=== PATIENT | female | born 1990 | race Caucasian/White ===

== ENCOUNTER 2016-07-22 21:24 | Emergency (ER) | payer MEDICAID, OTHER ==
--- NOTE | 2016-07-22 21:48 | ED.PDOC ---
History of Present Illness - General Chief Complaint: ENT Problem Stated Complaint: Ruslan in R lower eyelid Time Seen by Provider: 07/22/16 21:45 Source: patient, RN notes reviewed, Vital Signs reviewed Exam Limitations: no limitations - History of Present Illness Initial Comments: Vin was hanging from car mirror. She bent over to pick something up from the floorboard and when she came up the hook caught her R lower eyelid. Timing/Duration: abrupt EENT Location: eye (R) Prearrival Treatment: no prearrival treatment Improving Factors: nothing Associated Symptoms: denies symptoms Allergies/Adverse Reactions: Allergies NO KNOWN ALLERGY Allergy (Unverified 03/20/12 21:52) Home Medications: Ambulatory Orders Naproxen Sodium [Anaprox Ds] 550 mg PO BID #30 tab 07/02/14 Penicillin V Potassium 500 mg PO QID #40 tab 07/02/14 Azithromycin [Zithromax Z-Mario] 1 ea PO DAILY #1 pack 12/28/15 Review of Systems - Review of Systems Constitutional: States: no symptoms reported EENTM: States: see HPI, eye pain, tearing. Denies: blurred vision, double vision Respiratory: States: no symptoms reported Cardiology: States: no symptoms reported Skin: States: see HPI Neurological: States: no symptoms reported All other Systems: No Change from Baseline Past Medical History (General) - Patient Medical History Hx Seizures: No Hx Stroke: No Hx Dementia: No Hx Asthma: No Hx of COPD: No Hx Cardiac Disorders: No Hx Congestive Heart Failure: No Hx Pacemaker: No Hx Hypertension: No Hx Thyroid Disease: No Hx Diabetes: No Hx Gastroesophageal Reflux: No Hx Renal Disease: No Hx Cancer: No Hx of HIV: No Hx Hepatitis C: No Hx MRSA: No - Vaccination History Hx Influenza Vaccination: No - Social History Hx Tobacco Use: Yes Hx Alcohol Use: Yes Hx Substance Use: No Hx Substance Use Treatment: No Hx Depression: Yes Hx Physical Abuse: No Hx Emotional Abuse: No Hx Suspected Abuse: No - Female History Patient : No Family Medical History - Family History Mother Family History: Unknown Living Status: Age at (years of age): 30 Cause of : MVC Physical Exam - Physical Exam General Appearance: Agitated, Anxious, Obvious distress, Well Developed, Well Groomed, Well Hydrated, Well Nourished Eye Exam: right other - Fish hook lower eyelid, after fish hook remmoved eye examined with Flurosene, several small abrasions across lower cornea., left normal Neck: full range of motion, supple Cardiovascular/Respiratory: no respiratory distress Neurologic: alert, normal mood/affect, oriented x 3 Skin Exam: normal color, warm/dry Procedures - Foreign Body Removal Foreign Body Removal: fish hook - Anethseia: tetracaine. Gentamycin drops placed by nurse Foreign Body Physician Comment:: Fish hook through inner aspect of lower eyelid. Removed without difficulty. Departure - Departure Clinical Impression: Corneal abrasion, right Qualifiers: Encounter type: initial encounter Qualified Code(s): S05.01XA - Injury of conjunctiva and corneal abrasion without foreign body, right eye, initial encounter Fish hook injury of cheek Qualifiers: Encounter type: initial encounter Qualified Code(s): S09.93XA - Unspecified injury of face, initial encounter Time of Disposition: 21:54 Disposition: Discharge to Home or Self Care Condition: Good Instructions: DI for Corneal Abrasion Diet: resume usual diet Activity: increase activity as tolerated Home Medications: Ambulatory Orders Naproxen Sodium [Anaprox Ds] 550 mg PO BID #30 tab 07/02/14 Penicillin V Potassium 500 mg PO QID #40 tab 07/02/14 Azithromycin [Zithromax Z-Mario] 1 ea PO DAILY #1 pack 12/28/15 Additional Instructions: Gentamycin Eye Drops: Apply 1 drop every 4 hours while awake X 7 days No contact in R eye X 7 days
[2016-07-22 21:57] VITALS: BP 144/87; TEMP 98.6; O2SAT 100
[2016-07-22] MEDS ORDERED: TETRACAINE HCL 0.5% 4 ML BTTL OPHTH ONE (22:00)
[2016-07-22] MEDS ORDERED: GENTAMICIN OPTH SOL 0.3% 5ML BOTTLE OPHTH ONE (22:00)
== END 2016-07-22 22:08 | disposition home or self-care (01) ==
LOC: ER 21:24
DX: S01.141A Puncture wound with foreign body of right eyelid and periocular area, initial encounter (principal); S05.01XA Injury of conjunctiva and corneal abrasion without foreign body, right eye, initial encounter; Z87.891 Personal history of nicotine dependence; X58.XXXA Exposure to other specified factors, initial encounter; Y92.89 Other specified places as the place of occurrence of the external cause

== ENCOUNTER 2017-03-20 10:22 | Emergency (ER) | payer SELFPAY ==
[2017-03-20 10:46] VITALS: BP 125/76; TEMP 97.2; O2SAT 98
--- NOTE | 2017-03-20 10:58 | ED.PDOC ---
History of Present Illness - General Chief Complaint: Eye Problems Stated Complaint: right eye swelling/pain,BEE Time Seen by Provider: 03/20/17 10:44 Source: patient Exam Limitations: no limitations - History of Present Illness Initial Comments: SHE STARTED WITH RIGHT EYE PAIN AND INJECTION YESTERDAY ASSOCIATED WITH LACRIMATION AND A RIGHT SIDED HEADACHE. SHE ALSO VOICES GALACTORRHEA. SHE HAS A HX OF A PUNCTURE WOUND TO THE RIGHT SCLERA WITH A FISHHOOK SEVERAL MONTHS AGO. THERE WAS NO GLOBE PUNCTURE. Timing/Duration: gradual, yesterday EENT Location: eye (R) Prearrival Treatment: no prearrival treatment Improving Factors: nothing Associated Symptoms: denies symptoms Allergies/Adverse Reactions: Allergies NO KNOWN ALLERGY Allergy (Verified 07/22/16 21:57) Home Medications: Ambulatory Orders NK [NK] 03/20/17 Review of Systems - Review of Systems Constitutional: States: no symptoms reported EENTM: States: eye pain, ear pain, throat pain Respiratory: States: no symptoms reported Cardiology: States: no symptoms reported Gastrointestinal/Abdominal: States: no symptoms reported Genitourinary: States: other - RIGHT SIDED GALACTORRHEA Musculoskeletal: States: no symptoms reported Skin: States: no symptoms reported Neurological: States: no symptoms reported Endocrine: States: no symptoms reported Hematologic/Lymphatic: States: no symptoms reported Past Medical History (General) - Patient Medical History Hx Seizures: No Hx Stroke: No Hx Dementia: No Hx Asthma: No Hx of COPD: No Hx Cardiac Disorders: No Hx Congestive Heart Failure: No Hx Pacemaker: No Hx Hypertension: No Hx Thyroid Disease: No Hx Diabetes: No Hx Gastroesophageal Reflux: No Hx Renal Disease: No Hx Cancer: No Hx of HIV: No Hx Hepatitis C: No Hx MRSA: No - Vaccination History Hx Tetanus, Diphtheria Vaccination: Yes - 2016 Hx Influenza Vaccination: No - Social History Hx Tobacco Use: Yes Hx Alcohol Use: Yes Hx Substance Use: No Hx Substance Use Treatment: No Hx Depression: Yes Hx Physical Abuse: No Hx Emotional Abuse: No Hx Suspected Abuse: No - Female History Patient is a Female of Child Bearing Age (10 -59 yrs old): Yes - states her periods are irregular Patient : No Family Medical History - Family History Mother Family History: Unknown Living Status: Age at (years of age): 30 Cause of : MVC Physical Exam - Physical Exam General Appearance: Alert, Anxious Eye Exam: right other - INJECTED CONJUCTIVA AND FB NOTED AT 9 OCLOCK. , left abnormal EOM, bilateral abnormal pupil Nasal Exam: normal inspection Throat Exam: normal mouth inspection Neck: non-tender Cardiovascular/Respiratory: regular rate, rhythm, normal peripheral pulses, no JVD, normal breath sounds, no respiratory distress Abdominal Exam: non-tender, no organomegaly, no hernia Neurologic: no motor/sensory deficits, alert - GALACTORRHEA RIGHT BREAST Skin Exam: normal color Progress - Results/Orders Results/Orders: LAB IS REPORTED NEGATIVE TEST. Procedures - Eye Procedure Right Alcaine Drops Administered: Yes FB Removal from Eye Procedure: with cottin-tipped swab Eye Irrigated w/ Saline (cc's): 20 Cyclogel 2 Drops Administered: No Antibiotic Oinment/Drps Admin: GENTAMYCIN Progress: THE PATIENT TOLERATED THE PROCEDURE WELL Departure - Departure Clinical Impression: Foreign body of eye, external, right Qualifiers: Encounter type: initial encounter Qualified Code(s): T15.91XA - Foreign body on external eye, part unspecified, right eye, initial encounter Time of Disposition: 12:36 Disposition: Discharge to Home or Self Care Departure Forms: ED Discharge - Pt. Copy, Patient Portal Self Enrollment Instructions: DI for Eye Pain, DI for Corneal Foreign Body-Eye Diet: resume usual diet Activity: increase activity as tolerated Home Medications: Ambulatory Orders NK [NK] 03/20/17
[2017-03-20] MEDS ORDERED: GENTAMICIN 0.3% OPHTH SOL 1 DROP OPHTH ONE (12:00)
[2017-03-20] MEDS ORDERED: TETRACAINE HCL 0.5% OPHTH SOL 1 DROP OPHTH ONE (12:00)
[2017-03-20] MEDS ORDERED: OPHTHALMIC SALT SOLUTION 120 ML BTTL ONE (12:10)
== END 2017-03-20 12:45 | disposition home or self-care (01) ==
LOC: ER 10:22
DX: T15.91XA Foreign body on external eye, part unspecified, right eye, initial encounter (principal); N64.3 Galactorrhea not associated with childbirth

== ENCOUNTER 2018-01-21 11:44 | Emergency (ER) | payer MEDICAID ==
[2018-01-21 11:58] VITALS: O2SAT 99
--- NOTE | 2018-01-21 12:37 | ED.PDOC ---
History of Present Illness - General Chief Complaint: General Stated Complaint: fever, body aches, diarrhea, headache x 7 days Time Seen by Provider: 01/21/18 11:57 Source: patient Exam Limitations: no limitations - History of Present Illness Initial Comments: Deidra Vargas 27 y/o female stated she had nausea/vomiting initially last week then followed by watery diarrhea which still lingers today.Had also body aches and fever since yesterday took tylenol for her fever before coming here.Denies nausea/vomiting,cough,blood in stool;no dysuria.Denies chronic medical problem. Timing/Duration: 1 week, constant Severity: moderate Improving Factors: nothing Worsening Factors: nothing Allergies/Adverse Reactions: Allergies NO KNOWN ALLERGY Allergy (Verified 01/21/18 12:05) Home Medications: Ambulatory Orders Azithromycin [Azithromycin] 1 tablet PO DAILY 01/21/18 Review of Systems - Review of Systems Constitutional: States: see HPI, fever, malaise EENTM: States: no symptoms reported Respiratory: States: no symptoms reported Cardiology: States: no symptoms reported Gastrointestinal/Abdominal: States: see HPI, diarrhea Genitourinary: States: no symptoms reported Musculoskeletal: States: no symptoms reported Skin: States: no symptoms reported Past Medical History (General) - Patient Medical History Hx Seizures: No Hx Stroke: No Hx Dementia: No Hx Asthma: No Hx of COPD: No Hx Cardiac Disorders: No Hx Congestive Heart Failure: No Hx Pacemaker: No Hx Hypertension: No Hx Thyroid Disease: No Hx Diabetes: No Hx Gastroesophageal Reflux: No Hx Renal Disease: No Hx Cancer: No Hx of HIV: No Hx Hepatitis C: No Hx MRSA: No Hx Other PMH: Yes - bilateral nipple discharge-followed up by specialist mammogram done; Hx Other - free text: 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 Surgical History: other - c- section - Vaccination History Hx Tetanus, Diphtheria Vaccination: Yes - 2016 Hx Influenza Vaccination: No Hx Pneumococcal Vaccination: No - Social History Hx Tobacco Use: Yes Hx Alcohol Use: Yes Hx Substance Use: No Hx Substance Use Treatment: No Hx Depression: Yes Hx Physical Abuse: No Hx Emotional Abuse: No Hx Suspected Abuse: No - Female History Patient is a Female of Child Bearing Age (10 -59 yrs old): Yes Hx Last Menstrual Period: 01/21/18 Patient : No Family Medical History - Family History Mother Family History: Unknown Living Status: Age at (years of age): 30 Cause of : MVC Hx Cardiac Disease: Yes - dad and Hep C Physical Exam - Physical Exam General Appearance: Alert, Comfortable, No apparent distress Eye Exam: bilateral normal Ears, Nose, Throat: hearing grossly normal, normal ENT inspection, pharyngeal erythema Neck: non-tender, full range of motion, supple, normal inspection Respiratory: chest non-tender, lungs clear, normal breath sounds, no respiratory distress Cardiovascular/Chest: normal peripheral pulses, regular rate, rhythm, no murmur Peripheral Pulses: radial,right: 2+, radial,left: 2+ Gastrointestinal/Abdominal: normal bowel sounds, non tender, soft Back Exam: no CVA tenderness, no vertebral tenderness Extremity: no pedal edema, no calf tenderness Neurologic: alert, oriented x 3 Skin Exam: normal color, warm/dry Lymphatic: no adenopathy Progress - Progress Progress: 01/21/18 12:43 Vital Signs - 8 hr 01/21/18 11:56 Temperature 96.9 F L Pulse Rate [ 84 monitor] Respiratory 18 Rate Blood Pressure 113/81 [Right Arm] O2 Sat by Pulse 99 Oximetry 01/21/18 14:17 Unable to give stool samples;Discuss all test results with patient told her unable to find out what is causing her body aches since all test results are all within normal range nothing acute. - Results/Orders Results/Orders: Flu swab-negative 01/21/18 12:44 IV Care:Saline Lock per Protoc QSHIFT CLOSTRIDIUM DIFFICILE AG/TOXIN Urgent STOOL CULTURE Stat 01/21/18 13:35 STREP A SCREEN CULTURE Stat Laboratory Results - last 24 hr 01/21/18 01/21/18 01/21/18 13:15 13:20 13:20 WBC 8.0 RBC 4.44 Hgb 13.6 Hct 40.4 MCV 91.0 MCH 30.5 MCHC 33.6 RDW 13.3 Plt Count 211 MPV 9.5 Absolute Neuts (auto) 5.30 Absolute Lymphs (auto) 1.90 Absolute Monos (auto) 0.50 Absolute Eos (auto) 0.30 Absolute Basos (auto) 0.00 Neutrophils % 66.4 Lymphocytes % 23.2 Monocytes % 6.4 Eosinophils % 3.5 Basophils % 0.5 Sodium 139 Potassium 3.9 Chloride 108 Carbon Dioxide 31 Anion Gap 3.9 L BUN 10 Creatinine 0.68 BUN/Creatinine Ratio 14.7 Random Glucose 87 Serum Osmolality 275.9 Lactic Acid Calcium 9.1 Total Bilirubin 0.6 AST 20 ALT 19 Alkaline Phosphatase 59 Serum Total Protein 7.6 Albumin 4.3 Globulin 3.3 Albumin/Globulin Ratio 1.3 Urine Color Yellow Urine Appearance Clear Urine pH 7.5 Ur Specific [place] 1.015 Urine Protein Negative Urine Glucose (UA) Negative Urine Ketones Negative Urine Blood Moderate H Urine Nitrite Negative Urine Bilirubin Negative Urine Urobilinogen 0.2 Ur Leukocyte Esterase Negative Urine RBC 1-3 Urine WBC 0 Ur Epithelial Cells 1-3 Urine Bacteria 0 Monoscreen Group A Strep Rapid 01/21/18 01/21/18 01/21/18 13:20 13:20 13:35 WBC RBC Hgb Hct MCV MCH MCHC RDW Plt Count MPV Absolute Neuts (auto) Absolute Lymphs (auto) Absolute Monos (auto) Absolute Eos (auto) Absolute Basos (auto) Neutrophils % Lymphocytes % Monocytes % Eosinophils % Basophils % Sodium Potassium Chloride Carbon Dioxide Anion Gap BUN Creatinine BUN/Creatinine Ratio Random Glucose Serum Osmolality Lactic Acid 0.7 Calcium Total Bilirubin AST ALT Alkaline Phosphatase Serum Total Protein Albumin Globulin Albumin/Globulin Ratio Urine Color Urine Appearance Urine pH Ur Specific [place] Urine Protein Urine Glucose (UA) Urine Ketones Urine Blood Urine Nitrite Urine Bilirubin Urine Urobilinogen Ur Leukocyte Esterase Urine RBC Urine WBC Ur Epithelial Cells Urine Bacteria Monoscreen Negative Group A Strep Rapid Negative - EKG/XRAY/CT XRAY: chest - no acute abnormalities CT Ordered: No Departure - Departure Clinical Impression: Body aches, Systemic viral illness Time of Disposition: 14:20 Disposition: Discharge to Home or Self Care Condition: Good Departure Forms: ED Discharge - Pt. Copy, Patient Portal Self Enrollment Instructions: Diarrhea in Adolescents and Adults, [place] Diet Referrals: Ava Arciniega NP [Primary Care Provider] - 1-2 Weeks Home Medications: Ambulatory Orders Azithromycin [Azithromycin] 1 tablet PO DAILY 01/21/18 Additional Instructions: Avoid greasy and spicy foods;Drink extra fluids;Follow up with your primary Md 26 January 2018;continue with Tylenol for fever and body aches as needed see package insert for direction
[2018-01-21] MEDS ORDERED: LACTATED RINGERS 1,000 ML IVS ONE (12:44)
--- NOTE | 2018-01-21 13:11 | RAD ---
EXAM DESCRIPTION: Chest,1 View CLINICAL HISTORY: fever COMPARISON: May 17, 2008 FINDINGS: Accounting for AP technique, the cardiomediastinal silhouette is unremarkable. There is no airspace consolidation or pleural effusion. The bronchovascular markings are within normal limits, and the lungs are not hyperinflated. There is no pneumothorax or acute fracture. IMPRESSION: No acute findings. Electronically signed by: William Herrera MD 01/21/2018 1:10 PM [employer]
[2018-01-21 14:38] VITALS: BP 125/69; TEMP 97.5
== END 2018-01-21 14:38 | disposition home or self-care (01) ==
LOC: ER 11:44
DX: B34.9 Viral infection, unspecified (principal); R52 Pain, unspecified; F32.9 Major depressive disorder, single episode, unspecified; Z87.891 Personal history of nicotine dependence
CPT/HCPCS: 36415; 71045; 80053; 81001; 83605; 85025; 86403; 87070; 87502; 87880; J7120

== ENCOUNTER 2018-07-19 08:59 | Emergency (ER) | payer MEDICAID, SELFPAY ==
[2018-07-19 09:10] VITALS: TEMP 97.8
--- NOTE | 2018-07-19 09:22 | ED.PDOC ---
History of Present Illness - General Chief Complaint: Chest Pain/AL Stated Complaint: chest pain Time Seen by Provider: 07/19/18 09:20 Source: patient - History of Present Illness Initial Comments: SHE COMES TO THE ED WITH A TWO WEEK HX OF CHEST PAIN, LEFT SIDED THAT INCREASES WITH DEEP INSPIRATION AND MOVEMENT. SHE IS A FLIGHT OPERATION COORDINATOR AND INITIALLY THOUGHT THAT IT MIGHT BE MUSCULAR IN ORIGIN BUT ITS NOT GOING AWAY. SHE ALSO VOICES GALACTORRHEA AND IS SEEING A DOCTOR IN [place] FOR THIS ISSUE. SHE IS SCHEDULED FOR AN MRI OF THE PITUITARY GLAND. Timing/Duration: other - TWO WEEKS Severity/Quality: moderate, sharp Location: substernal Chest Pain Radiation: arms Activities at Onset: none Prior Chest Pain/Cardiac Workup: no prior chest pain Improving Factors: immobilization Worsening Factors: movement, other - DEEP INSPIRATION Nitro Today/Relief: no nitro taken today Aspirin Treatment Today: no aspirin today Associated Symptoms: dizziness Allergies/Adverse Reactions: Allergies NO KNOWN ALLERGY Allergy (Verified 01/21/18 12:05) Home Medications: Ambulatory Orders Naproxen [Naprosyn] 500 mg PO BID #14 tab 07/19/18 Review of Systems - Review of Systems Constitutional: States: no symptoms reported EENTM: States: no symptoms reported Respiratory: States: no symptoms reported Cardiology: States: chest pain Gastrointestinal/Abdominal: States: no symptoms reported Genitourinary: States: no symptoms reported Musculoskeletal: States: no symptoms reported Skin: States: no symptoms reported Neurological: States: no symptoms reported Endocrine: States: no symptoms reported Hematologic/Lymphatic: States: no symptoms reported Past Medical History (General) - Patient Medical History Hx Seizures: No Hx Stroke: No Hx Dementia: No Hx Asthma: No Hx of COPD: No Hx Cardiac Disorders: No Hx Congestive Heart Failure: No Hx Pacemaker: No Hx Hypertension: No Hx Thyroid Disease: No Hx Diabetes: No Hx Gastroesophageal Reflux: No Hx Renal Disease: No Hx Cancer: No Hx of HIV: No Hx Hepatitis C: No Hx MRSA: No Hx Other - free text: PULMONARY EMBOLISM 10 YEARS AGO Surgical History: other - Vaccination History Hx Tetanus, Diphtheria Vaccination: Yes - 2016 Hx Influenza Vaccination: No Hx Pneumococcal Vaccination: No - Social History Hx Tobacco Use: Yes Hx Alcohol Use: Yes Hx Substance Use: No Hx Substance Use Treatment: No Hx Depression: Yes Hx Physical Abuse: No Hx Emotional Abuse: No Hx Suspected Abuse: No - Female History Patient is a Female of Child Bearing Age (10 -59 yrs old): Yes Hx Last Menstrual Period: 01/21/18 Patient : No Family Medical History - Family History Mother Family History: Unknown Living Status: Age at (years of age): 30 Cause of : MVC Hx Cardiac Disease: Yes - dad and Hep C Physical Exam - Physical Exam General Appearance: Alert, Well Developed, Well Groomed, Well Hydrated Eyes, Ears, Nose, Throat Exam: PERRL/EOMI, normal ENT inspection Neck: non-tender, full range of motion, supple, normal inspection Respiratory: chest non-tender, lungs clear, normal breath sounds, no respiratory distress, no accessory muscle use Cardiovascular/Chest: normal peripheral pulses, regular rate, rhythm, no edema, no gallop, no JVD, no murmur Peripheral Pulses: radial,right: 2+, radial,left: 2+ Gastrointestinal/Abdominal: normal bowel sounds, non tender, soft, no organomegaly, no pulsatile mass Rectal Exam: deferred Extremity: normal range of motion, non-tender 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, no motor/sensory deficits, alert, normal mood/affect, oriented x 3 Skin Exam: normal color Lymphatic: no adenopathy Progress - Results/Orders Results/Orders: 07/19/18 09:30 EKG STAT Laboratory Results WBC 6.4 K/mm3 (4.8-10.8) 07/19/18 09:43 RBC 4.61 M/mm3 (4.20-5.40) 07/19/18 09:43 Hgb 14.2 gm/dL (12.0-16.0) 07/19/18 09:43 Hct 42.7 % (36.0-47.0) 07/19/18 09:43 MCV 92.5 fl (81.0-99.0) 07/19/18 09:43 MCH 30.8 pg (27.0-31.0) 07/19/18 09:43 MCHC 33.3 g/dL (33.0-37.0) 07/19/18 09:43 RDW 14.2 % (11.5-14.5) 07/19/18 09:43 Plt Count 241 K/mm3 (130-400) 07/19/18 09:43 MPV 10.0 fl (7.40-10.4) 07/19/18 09:43 Absolute Neuts (auto) 4.00 K/uL (1.8-6.8) 07/19/18 09:43 Absolute Lymphs (auto) 1.60 K/uL (1.0-3.4) 07/19/18 09:43 Absolute Monos (auto) 0.50 K/uL (0.2-0.8) 07/19/18 09:43 Absolute Eos (auto) 0.30 K/uL (0.0-0.4) 07/19/18 09:43 Absolute Basos (auto) 0.00 K/uL (0.0-0.1) 07/19/18 09:43 Neutrophils % 63.2 % (42.0-78.0) 07/19/18 09:43 Lymphocytes % 24.6 % (20.0-50.0) 07/19/18 09:43 Monocytes % 7.2 % (2.0-9.0) 07/19/18 09:43 Eosinophils % 4.3 % (1.0-5.0) 07/19/18 09:43 Basophils % 0.7 % (0.0-2.0) 07/19/18 09:43 D-Dimer, Quantitative 0.50 mg/L FEU (0-0.49) H 07/19/18 09:43 Sodium 138 mmol/L (135-145) 07/19/18 09:43 Potassium 4.1 mmol/L (3.6-5.0) 07/19/18 09:43 Chloride 107 mmol/L (101-111) 07/19/18 09:43 Carbon Dioxide 25 mmol/L (21-31) 07/19/18 09:43 Anion Gap 10.1 (12-18) L 07/19/18 09:43 BUN 12 mg/dL (7-18) 07/19/18 09:43 Creatinine 0.66 mg/dL (0.6-1.3) 07/19/18 09:43 BUN/Creatinine Ratio 18.2 (10-20) 07/19/18 09:43 Random Glucose 71 mg/dL (70-105) 07/19/18 09:43 Serum Osmolality 273.9 mOsm/L (275-295) L 07/19/18 09:43 Calcium 8.9 mg/dL (8.4-10.2) 07/19/18 09:43 Total Bilirubin 0.3 mg/dL (0.2-1.0) 07/19/18 09:43 AST 23 IU/L (10-42) 07/19/18 09:43 ALT 18 IU/L (10-60) 07/19/18 09:43 Alkaline Phosphatase 62 IU/L (42-121) 07/19/18 09:43 Troponin I < 0.02 ng/mL (0.01-0.05) 07/19/18 09:43 Serum Total Protein 7.2 gm/dL (6.4-8.2) 07/19/18 09:43 Albumin 3.9 g/dl (3.2-5.5) 07/19/18 09:43 Globulin 3.3 gm/dL (2.3-3.5) 07/19/18 09:43 Albumin/Globulin Ratio 1.2 (1.1-1.9) 07/19/18 09:43 Serum HCG, Qual Negative (NEGATIVE) 07/19/18 10:34 CXR IS NEGATIVE FOR ACUTE PROCESS. CTA OF THE LUNG IS NEGATIVE FOR PE OR ACUTE PROCESS. EKG: HR OF 72, VT INTERVAL OF 146, QRS OF 78, QTC OF 431, AXES OF 12 DEGREES. IMPRESSION: SINUS RHYTHM, NO ACUTE INJURY PATTERN. THERE ARE NO PREVIOUS TRACINGS TO COMPARE WITH. Departure - Departure Clinical Impression: Pleuritic chest pain Time of Disposition: 11:43 Condition: Fair Departure Forms: ED Discharge - Pt. Copy, Patient Portal Self Enrollment Instructions: DI for Chest Pain Referrals: Ava Arciniega NP [Primary Care Provider] - 1-2 Weeks Prescriptions: Naproxen [Naprosyn] 500 mg PO BID #14 tab Home Medications: Ambulatory Orders Naproxen [Naprosyn] 500 mg PO BID #14 tab 07/19/18
[2018-07-19] MEDS ORDERED: KETOROLAC TROMETHAMINE INJ 30 MG/ML VIAL ONE (09:29)
[2018-07-19] MEDS: KETOROLAC TROMETHAMINE INJ 30 MG/ML VIAL IV ONE (09:44)
--- NOTE | 2018-07-19 10:14 | RAD ---
EXAM DESCRIPTION: Chest,1 View CLINICAL HISTORY: Chest pain COMPARISON: Chest radiograph dated January 21, 2018 TECHNIQUE: Single upright portable frontal view the chest FINDINGS: Lung volumes are hypoinflated with associated bronchovascular crowding. Cardiac silhouette shows normal heart size. Pulmonary vascularity is within normal limits. Lungs show no confluent infiltrate. Costophrenic angles are sharp. No pneumothorax. Visualized osseous structures show no destructive lesions. IMPRESSION: No acute cardiopulmonary process. Electronically signed by: Agustin Mejía MD 07/19/2018 10:11 AM CDT
[2018-07-19 11:01] VITALS: O2SAT 99
--- NOTE | 2018-07-19 11:28 | CT ---
EXAM DESCRIPTION: CTA Chest CLINICAL HISTORY: 28 years, Female, CHEST PAIN, ELEVATED D-DIMER, HX OF PE IN THE PAST COMPARISON: Chest x-ray July 19, 2018 TECHNIQUE: CT pulmonary angiography is performed with thin-section multi detector technique during rapid bolus administration of routine adult dose of nonionic iodinated IV contrast media. Multiplanar reformatted images are reviewed along with source images. Oblique sagittal MIP images were evaluated. FINDINGS: Normal enhancement of pulmonary arteries. Axial and oblique sagittal images show no evidence of emboli. Normal enhancement of cardiac chambers. Early enhancement of the aorta is negative for aneurysm or dissection. Lung window images are negative for infiltrate. Minimal discoid atelectasis left lower lobe and right middle lobe. No worrisome mass or nodule. In the upper abdomen, upper abdominal viscera are unremarkable. No chest wall mass or rib fracture. No axillary or lower cervical adenopathy. Dense breast tissue appears symmetrical. Mild inhomogeneity of the thyroid gland. Coronal and sagittal reformatted MIP images confirm normal pulmonary arterial enhancement. IMPRESSION: Negative for evidence of pulmonary embolic disease. This exam was performed according to our departmental dose-optimization program, which includes automated exposure control, adjustment of the mA and/or kV according to patient size and/or use of iterative reconstruction technique. Total DLP equals 567.47 mGycm. Electronically signed by: Steven Rivera MD 07/19/2018 11:26 AM CDT
[2018-07-19 18:40] VITALS: BP 110/64
== END 2018-07-19 12:05 ==
LOC: ER 08:59
DX: R07.1 Chest pain on breathing (principal); O92.6 Galactorrhea; F32.9 Major depressive disorder, single episode, unspecified; Z82.49 Family history of ischemic heart disease and other diseases of the circulatory system; Z87.891 Personal history of nicotine dependence; Z86.711 Personal history of pulmonary embolism
CPT/HCPCS: 71045; 71275; 80053; 84484; 84703; 85025; 85379; 93005; J1885

== ENCOUNTER → 2018-11-02 | Outpatient (CLI) | payer OTHER | LOC: YCFC.O 11:25 | PROVIDERS: ATTEND Family Medicine | DX: J36 Peritonsillar abscess (principal) ==

== ENCOUNTER → 2018-11-16 | Outpatient (CLI) | payer OTHER | LOC: YCFC.O 11:13 | PROVIDERS: ATTEND Family Medicine | DX: J36 Peritonsillar abscess (principal) ==

== ENCOUNTER → 2018-12-14 | Outpatient (CLI) | payer OTHER | LOC: LAB.O 10:34 | PROVIDERS: ATTEND Family Medicine | DX: R61 Generalized hyperhidrosis (principal); R53.83 Other fatigue; Z87.09 Personal history of other diseases of the respiratory system ==

== ENCOUNTER 2019-06-21 14:41 | Emergency (ER) | payer OTHER ==
--- NOTE | 2019-06-21 15:12 | ED.PDOC ---
History of Present Illness - General Time Seen by Provider: 06/21/19 15:04 Additional Information: Patient is a 29-year-old female who presents to the ED with chief complaint of right foot pain. Patient indicates that 5 days ago she kicked her large dog to facilitate breaking up a fight between it and another large dog. Patient is able to walk on her foot but complains of discomfort with ambulation and numbness tingling to the top of her foot where she impacted the dog at nighttime. Patient has no other complaints. - History of Present Illness Allergies/Adverse Reactions: Allergies NO KNOWN ALLERGY Allergy (Verified 01/21/18 12:05) Home Medications: Ambulatory Orders Naproxen [Naprosyn] 500 mg PO BID #14 tab 07/19/18 Review of Systems - Review of Systems Constitutional: States: no symptoms reported Respiratory: States: no symptoms reported Cardiology: States: no symptoms reported Gastrointestinal/Abdominal: States: no symptoms reported Musculoskeletal: States: see HPI Neurological: States: see HPI All other Systems: Reviewed and Negative Past Medical History (General) - Patient Medical History Hx Seizures: No Hx Stroke: No Hx Dementia: No Hx Asthma: No Hx of COPD: No Hx Cardiac Disorders: No Hx Congestive Heart Failure: No Hx Pacemaker: No Hx Hypertension: No Hx Thyroid Disease: No Hx Diabetes: No Hx Gastroesophageal Reflux: No Hx Renal Disease: No Hx Cancer: No Hx of HIV: No Hx Hepatitis C: No Hx MRSA: No - Vaccination History Hx Tetanus, Diphtheria Vaccination: Yes - 2015 Hx Influenza Vaccination: No Hx Pneumococcal Vaccination: No - Social History Hx Tobacco Use: Yes Hx Alcohol Use: Yes Hx Substance Use: No Hx Substance Use Treatment: No Hx Depression: Yes Hx Physical Abuse: No Hx Emotional Abuse: No Hx Suspected Abuse: No - Female History Hx Last Menstrual Period: 01/21/18 Patient : No Family Medical History - Family History Mother Family History: Unknown Living Status: Age at (years of age): 30 Cause of : MVC Hx Cardiac Disease: Yes - dad and Hep C Physical Exam - Physical Exam General Appearance: Alert, Comfortable, No apparent distress Neck: normal inspection Back: normal inspection Thigh/Hip: normal inspection, non-tender, no evidence of injury Leg: normal inspection, non-tender, no evidence of injury Knee: normal inspection, non-tender, no evidence of injury Ankle: normal inspection, non-tender, no evidence of injury Foot: other - Ecchymosis to the entire dorsal aspect of the right foot. Mild to moderate tenderness to palpation laterally. 2+ DP pulse. Neuro/Tendon: normal sensation, normal motor functions Mental Status: alert, oriented x 3 Skin: normal color, warm/dry Progress - Progress Progress: 06/21/19 15:15 Differential diagnosis includes but is not limited to fracture, contusion, sprain, dislocation 06/21/19 1609 Patient's x-ray is unremarkable and clinically patient with contusion only. Patient to rest and take OTC Motrin and follow-up with her PCP. Pt happy w plan. Departure - Departure Clinical Impression: Foot contusion Qualifiers: Encounter type: initial encounter Time of Disposition: 16:14 Disposition: Discharge to Home or Self Care Condition: Good Instructions: Contusion (DC) Activity: walking as tolerated Referrals: Adan Vargas MD [Primary Care Provider] - 1-2 Weeks Home Medications: Ambulatory Orders Naproxen [Naprosyn] 500 mg PO BID #14 tab 07/19/18
[2019-06-21 15:29] VITALS: O2SAT 99
--- NOTE | 2019-06-21 15:49 | RAD ---
EXAM DESCRIPTION: Ankle,Right 3 Views CLINICAL HISTORY: 29 years Female, TRAUMA COMPARISON: None. FINDINGS: 3 views of the right ankle show no acute fracture or malalignment. The tibiotalar joint space and talar dome are well-maintained. No soft tissue swelling. No joint effusion. No radiopaque foreign body or soft tissue gas. IMPRESSION: Negative exam. Electronically signed by: William Herrera MD 06/21/2019 3:48 PM CDT
--- NOTE | 2019-06-21 15:50 | RAD ---
EXAM DESCRIPTION: Foot,Right 3 Views CLINICAL HISTORY: 29 years Female, TRAUMA COMPARISON: None. FINDINGS: 3 views of the right foot show no acute fracture or malalignment. No focal bone lesion or periostitis. No radiopaque foreign body or soft tissue gas. IMPRESSION: Negative exam. Electronically signed by: William Herrera MD 06/21/2019 3:49 PM CDT
[2019-06-21 16:21] VITALS: BP 132/76; TEMP 98.6
== END 2019-06-21 16:21 | disposition home or self-care (01) ==
LOC: ER 14:41
DX: S90.31XA Contusion of right foot, initial encounter (principal); F17.200 Nicotine dependence, unspecified, uncomplicated; W54.1XXA Struck by dog, initial encounter; Y92.9 Unspecified place or not applicable

== ENCOUNTER → 2020-02-14 | Outpatient (CLI) | payer OTHER | LOC: YCFC.O 14:29 | PROVIDERS: ATTEND Nurse Practitioner Family | DX: Z02.1 Encounter for pre-employment examination (principal) ==